=== PATIENT | male | born 1930 | race Caucasian/White ===

== ENCOUNTER 2018-05-02 21:51 | Observation (INO) ==
[2018-05-02] MEDS ORDERED: 0.9 % Sodium Chloride 1,000 ML IVC ONE (22:28)
--- NOTE | 2018-05-02 22:29 | Emergency Department Note ---
Disposition Clinical Impression: Dehydration, Acute cholecystitis, Cholelithiasis and acute cholecystitis without obstruction Disposition: Admitted As Inpatient Condition: Good Instructions: Dehydration (ED), Biliary Colic (ED) Referrals: NONE,PCP [Primary Care Provider] - Forms: ED Satisfaction Letter, Work/School Release Time of Disposition: 00:19 (Dr Tapia [id number] the pt at 12:19 am) Abdominal Pain HPI - General Chief Complaint: ED Abdominal Pain Stated Complaint: WEAKNESS, ABD PAIN Time Seen by Provider: 05/02/18 22:06 Source: patient - History of Present Illness HPI Narrative: Patient is a pleasant 88-year-old male with no significant PMH who is presenting to [facility] Emergency Room with a chief complaint off abdominal discomfort, dehydration and weakness. His sons brought him to the urgent care earlier where he was diagnosed with ileus. His condition got worse so they brought him to the emergency room for evaluation. He denies any true pain however he feels weak and frail and noticed to be dehydrated. Patient denies any fever, chills or night sweats. Pt also denies any eye pain or visual disturbances. There is no sore throat, nasal drainages or facial congestion. There is no chest pain, palpitations or racing heart. Pt also denies any shortness of breath, cough or chest congestion. There is no abdominal pain, nausea, vomiting or diarrhea. There is no urgency, frequency or dysuria. There is no muskulo-skeletal pain, arthralgia or back pain. Patient also denies any rash, edema or pruritus. There is no neurological manifestations, no headache, no vertigo or weakness. The patient also denies any anxiety, depression, hallucinations and has no homicidal or suicidal ideations. There is no polyuria, polydipsia or recent weight change. There is no easy bruising or bleeding. Review of other systems is otherwise negative except above. Consistency: intermittent Pain Severity: none Pain Scale: 5 - Related Data Previous Rx's Medication Instructions Recorded Dicyclomine [Bentyl] 10 mg PO QID #20 capsule 05/02/18 Simethicone [Gas Relief] 125 mg PO TID #15 tab.chew 05/02/18 Allergies Allergy/AdvReac Type Severity Reaction Status Date / Time Hydromorphone [From Dilaudid] AdvReac Hallucinati Verified 05/02/18 21:53 ng All systems ED: reviewed and negative except as stated. Review of Systems: As Per HPI Constitutional: Reports: weakness. Denies: fever, chills Eyes: Denies: eye pain, eye discharge ENT ED: Denies: ear pain, throat pain Cardiovascular: Denies: chest pain, palpitations Respiratory: Denies: cough, dyspnea, wheezes Gastrointestinal: Reports: nausea. Denies: abdominal pain, vomiting, diarrhea Genitourinary: Denies: urgency, dysuria, frequency Musculoskeletal: Denies: back pain, neck pain, joint swelling Integumentary: Denies: abrasion, lesions Neurological: Reports: weakness. Denies: headache, numbness Abdominal Pain PMH - Past Medical History Medical history: Reports: no medical history, other Male Surgical History: Reports: no surgical history, angioplasty/stent Psychiatric history: Reports: no psych history - Social History Smoking status: Never smoker Alcohol use: Reports: none Drug use: Reports: none Physical Exam - General Limitations: physical limitation, age General appearance: alert, in no apparent distress, lethargic - Head Head exam: atraumatic, normocephalic, normal inspection - Eye Eye exam: Present: normal appearance, PERRL, EOMI - Expanded Eye Exam Pupils: Left: reactive - ENT ENT exam: normal exam, normal oropharynx, mucous membranes dry - Expanded ENT Exam External ear exam: Present: normal external inspection Mouth exam: Present: normal external inspection Teeth exam: Present: normal inspection Throat exam: Present: normal inspection - Neck Neck exam: Present: normal inspection, full ROM, trachea midline - Chest Chest inspection: Present: normal inspection, symmetric chest wall rise - Respiratory Respiratory exam: Present: normal lung sounds bilaterally - Cardiovascular Cardiovascular exam: Present: regular rate, normal rhythm, normal heart sounds - Abdominal Exam Abdominal exam: Present: soft, Non-Tender. Absent: tenderness, distention, guarding, rebound, rigidity - Extremities Exam Extremities exam: Present: normal inspection, full ROM. Absent: tenderness, pedal edema - Expanded Upper Extremity Exam Shoulder exam: Present: normal inspection, full ROM Arm exam: Present: normal inspection, full ROM Elbow exam: Present: normal inspection, full ROM Forearm/Wrist exam: Present: normal inspection, full ROM Hand exam: Present: normal inspection, full ROM Vascular exam: Normal: capillary refill, radial pulse - Expanded Lower Extremity Exam Hip/Pelvis exam: Present: normal inspection, full ROM Upper leg exam: Present: normal inspection, full ROM Knee exam: Present: normal inspection, full ROM Lower leg exam: Present: normal inspection, full ROM Ankle exam: Present: normal inspection, full ROM Foot/toe exam: Present: normal inspection, full ROM Neurovascular/Tendon exam: Absent: motor deficit, sensory deficit, tendon deficit - Back Exam Back exam: Present: normal inspection, full ROM. Absent: tenderness - Neurological Exam Neurological exam: Present: alert, oriented X3 - Expanded Neurological Exam Patient oriented to: Present: person, place, time Coma Scale Eye Opening: Spontaneous Coma Scale Motor Response: Obeys Commands Coma Scale Verbal Response: Oriented Coma Scale Total: 15 - Psychiatric Psychiatric exam: Present: normal affect, normal mood - Skin Skin exam: Present: warm, dry, intact, normal color Course Vital Signs Temperature 98.3 F 05/02/18 21:55 Pulse Rate 63 05/02/18 21:55 Respiratory Rate 18 05/02/18 21:55 Blood Pressure 135/61 05/02/18 21:55 O2 Sat by Pulse Oximetry 90 05/02/18 21:55 Temperature 98.3 F 05/02/18 21:55 Pulse Rate 67 05/02/18 22:34 Respiratory Rate 16 05/02/18 22:34 Blood Pressure 130/66 05/02/18 22:34 O2 Sat by Pulse Oximetry 97 05/02/18 22:34 Oxygen Delivery Oxygen Delivery Room Air Abdominal Pain - MDM Narrative Medical decision making narrative: Once Ct scan posted, called Dr Tapia and he accepted the pt at 12:19 am - Differential Diagnosis Differential Diagnosis: Likely: acute appendicitis, calculus of kidney, constipation, diverticulitis - Medical Records Medical records reviewed: Yes I reviewed the patient's medical records. - Lab Data Lab results reviewed: Yes I reviewed the patient's lab results. Result diagrams: 05/02/18 22:20 05/02/18 22:20 Lab Results 05/02/18 05/02/18 05/02/18 Range/Units 22:20 22:20 22:20 WBC 14.5 H (4.3-11.1) K/mcL RBC 4.31 (4.19-5.50) M/mcL Hgb 13.2 (12.9-16.9) g/dL Hct 38.1 (37.5-50.1) % MCV 88.4 (83.0-100.0) fL MCH 30.6 (28.0-33.3) pg MCHC 34.6 (31.6-35.5) g/dL RDW 12.9 (11.5-14.5) % Plt Count 149 (140-400) K/mcL MPV 11.1 (9.4-12.4) fL Immature Gran % 0.3 (0-4) % Seg Neutrophils % 85.3 % Lymphocytes % 3.4 % Monocytes % 10.9 % Eosinophils % 0.0 % Basophils % 0.1 % Neutrophils # 12.4 H (1.6-8.9) K/mcL Lymphocytes # 0.5 L (0.6-4.6) K/mcL Monocytes # 1.6 H (0.0-1.3) K/mcL Eosinophils # 0.0 (0.0-0.6) K/mcL Basophils # 0.0 (0.0-0.2) K/mcL PT 11.7 (9.4-12.1) Seconds INR 1.0 APTT 27.6 (26.0-36.0) Seconds Sodium 132 L (136-145) mEq/L Potassium 3.7 (3.5-5.1) mEq/L Chloride 97 L (98-107) mEq/L Carbon Dioxide 25 (23-29) mEq/L BUN 19 (8-23) mg/dL Creatinine 1.19 (0.70-1.30) mg/dL Est GFR ( Amer) > 60 (> 60) Est GFR (Non-Af Amer) 58 L (> 60) BUN/Creatinine Ratio 16 (6-26) Glucose 164 H (70-105) mg/dL Calculated Osmolality 280 (280-300) Calcium 9.3 (8.6-10.3) mg/dL Total Bilirubin 1.9 H (0.3-1.0) mg/dL Direct Bilirubin 0.8 H (0.0-0.2) mg/dL Indirect Bilirubin 1.1 (0.0-1.2) mg/dL AST 344 H (13-39) Units/L ALT 297 H (7-52) Units/L Alkaline Phosphatase 183 H (34-104) Units/L Troponin I < 0.03 (< 0.04) ng/mL Serum Total Protein 6.7 (6.4-8.9) g/dL Albumin 3.7 (3.5-5.7) g/dL Globulin 3.0 (2.4-3.5) g/dL Albumin/Globulin Ratio 1.2 (1.1-2.2) Amylase 40 (29-103) Units/L Lipase 4 L (11-82) Units/L Urine Color (Yellow) Urine Clarity (Clear) Urine pH (5.0-8.0) pH Units Ur Specific [place] (1.010-1.025) Urine Protein (Neg-Trace) mg/dL Urine Glucose (UA) (Normal) mg/dL Urine Ketones (Negative) mg/dL Urine Blood (Negative) Urine Nitrite (Negative) Urine Bilirubin (Negative) Urine Urobilinogen (Normal) mg/dL Ur Leukocyte Esterase (Negative) Urine Microscopic RBC (0-3) per hpf Urine Microscopic WBC (0-3) per hpf Ur Squamous Epith Cells (None-Few) per lpf Ur Transition Epith Cell (None-Few) per hpf Urine Bacteria (None-Few) per hpf Hyaline Casts (None-Few) per lpf Urine Mucus (Few) Ur Culture Indicated? (NO) 05/02/18 Range/Units 23:45 WBC (4.3-11.1) K/mcL RBC (4.19-5.50) M/mcL Hgb (12.9-16.9) g/dL Hct (37.5-50.1) % MCV (83.0-100.0) fL MCH (28.0-33.3) pg MCHC (31.6-35.5) g/dL RDW (11.5-14.5) % Plt Count (140-400) K/mcL MPV (9.4-12.4) fL Immature Gran % (0-4) % Seg Neutrophils % % Lymphocytes % % Monocytes % % Eosinophils % % Basophils % % Neutrophils # (1.6-8.9) K/mcL Lymphocytes # (0.6-4.6) K/mcL Monocytes # (0.0-1.3) K/mcL Eosinophils # (0.0-0.6) K/mcL Basophils # (0.0-0.2) K/mcL PT (9.4-12.1) Seconds INR APTT (26.0-36.0) Seconds Sodium (136-145) mEq/L Potassium (3.5-5.1) mEq/L Chloride (98-107) mEq/L Carbon Dioxide (23-29) mEq/L BUN (8-23) mg/dL Creatinine (0.70-1.30) mg/dL Est GFR ( Amer) (> 60) Est GFR (Non-Af Amer) (> 60) BUN/Creatinine Ratio (6-26) Glucose (70-105) mg/dL Calculated Osmolality (280-300) Calcium (8.6-10.3) mg/dL Total Bilirubin (0.3-1.0) mg/dL Direct Bilirubin (0.0-0.2) mg/dL Indirect Bilirubin (0.0-1.2) mg/dL AST (13-39) Units/L ALT (7-52) Units/L Alkaline Phosphatase (34-104) Units/L Troponin I (< 0.04) ng/mL Serum Total Protein (6.4-8.9) g/dL Albumin (3.5-5.7) g/dL Globulin (2.4-3.5) g/dL Albumin/Globulin Ratio (1.1-2.2) Amylase (29-103) Units/L Lipase (11-82) Units/L Urine Color Yellow (Yellow) Urine Clarity Slightly Cloudy A (Clear) Urine pH 6.5 (5.0-8.0) pH Units Ur Specific [place] 1.015 (1.010-1.025) Urine Protein Negative (Neg-Trace) mg/dL Urine Glucose (UA) Normal (Normal) mg/dL Urine Ketones Negative (Negative) mg/dL Urine Blood Moderate H (Negative) Urine Nitrite Negative (Negative) Urine Bilirubin Negative (Negative) Urine Urobilinogen Normal (Normal) mg/dL Ur Leukocyte Esterase Trace H (Negative) Urine Microscopic RBC 3-5 H (0-3) per hpf Urine Microscopic WBC 3-5 H (0-3) per hpf Ur Squamous Epith Cells Few (None-Few) per lpf Ur Transition Epith Cell Few (None-Few) per hpf Urine Bacteria Moderate H (None-Few) per hpf Hyaline Casts Few (None-Few) per lpf Urine Mucus Moderate H (Few) Ur Culture Indicated? YES A (NO) - Radiology Data Radiology results reviewed: Yes I reviewed the patient's radiology results. - EKG Data EKG attestation: Yes I reviewed and interpreted this EKG.
[2018-05-02 22:31] LABS: Basophils % 0.1 %; Hematocrit 38.1 % (37.5-50.1); Hemoglobin 13.2 g/dL (12.9-16.9); Immature Granulocytes % 0.3 % (0-4); Lymphocytes # 0.5 K/mcL (0.6-4.6); Lymphocytes % 3.4 %; Mean Corpuscular HGB Conc 34.6 g/dL (31.6-35.5); Mean Corpuscular Hemoglobin 30.6 pg (28.0-33.3); Mean Corpuscular Volume 88.4 fL (83.0-100.0); Mean Platelet Volume 11.1 fL (9.4-12.4); Monocytes # 1.6 K/mcL (0.0-1.3); Monocytes % 10.9 %; Platelet Count 149 K/mcL (140-400); Red Blood Count 4.31 M/mcL (4.19-5.50); Red Cell Distribution Width 12.9 % (11.5-14.5); Segmented Neutrophils % 85.3 %
[2018-05-02 22:32] LABS: Neutrophils # 12.4 K/mcL (1.6-8.9)
[2018-05-02 22:39] LABS: Prothrombin Time 11.7 Seconds (9.4-12.1)
[2018-05-02 22:42] LABS: Activated Partial Thrombo Time 27.6 Seconds (26.0-36.0)
[2018-05-02 22:50] LABS: Troponin I < 0.03 ng/mL (< 0.04)
[2018-05-02 22:51] LABS: Alanine Aminotransferase 297 Units/L (7-52); Albumin 3.7 g/dL (3.5-5.7); Albumin/Globulin Ratio 1.2 (1.1-2.2); Alkaline Phosphatase 183 Units/L (34-104); Amylase 40 Units/L (29-103); Aspartate Amino Transferase 344 Units/L (13-39); BUN/Creatinine Ratio 16 (6-26); Bilirubin,Direct 0.8 mg/dL (0.0-0.2); Bilirubin,Indirect 1.1 mg/dL (0.0-1.2); Bilirubin,Total 1.9 mg/dL (0.3-1.0); Blood Urea Nitrogen 19 mg/dL (8-23); Calcium 9.3 mg/dL (8.6-10.3); Carbon Dioxide 25 mEq/L (23-29); Chloride 97 mEq/L (98-107); Glucose 164 mg/dL (70-105); Lipase 4 Units/L (11-82); Osmolality,Calculated 280 (280-300); Potassium 3.7 mEq/L (3.5-5.1); Sodium 132 mEq/L (136-145); Total Protein 6.7 g/dL (6.4-8.9); eGFR For Non-African Americans 58 (> 60)
[2018-05-02] MEDS ORDERED: Isovue-370 500 ML INFUS..BTL IV ONE (22:59)
[2018-05-02 23:48] LABS: Bilirubin,Urine Negative (Negative); Blood,Urine Moderate (Negative); Clarity,Urine Slightly Cloudy (Clear); Color,Urine Yellow (Yellow); Glucose,Urine (UA) Normal (Normal); Ketones,Urine Negative (Negative); Leukocyte Esterase,Urine Trace (Negative); Nitrite,Urine Negative (Negative); PH,Urine 6.5 pH Units (5.0-8.0); Protein,Urine Negative (Neg-Trace); Specific Gravity,Urine 1.015 (1.010-1.025); Urobilinogen,Urine Normal (Normal)
[2018-05-03] LABS: Hyaline Casts,Urine Few per lpf (None-Few); Mucus,Urine Moderate (Few); Squamous Epithelial Cell,Urine Few per lpf (None-Few); Transitional Epi Cells,Urine Few per hpf (None-Few)
[2018-05-03 00:03] LABS: Bacteria,Urine Moderate per hpf (None-Few)
[2018-05-03] MEDS ORDERED: cefTRIAXone 2,000 MG in Water for inj. (sterile) 20 ML 20 ML IVP ONE (00:04)
[2018-05-03] MEDS ORDERED: MetroNIDAZOLE 500 MG/100 ML 500 MG/100 ML BAG IVPB ONE (00:19)
[2018-05-03] MEDS ORDERED: Naloxone 0.4 MG/ML INJ IVP PRN (00:34)
[2018-05-03] MEDS ORDERED: Isovue-370 500 ML INFUS..BTL IV ONE (01:22)
[2018-05-03 06:28] VITALS: BP 143/72
[2018-05-03] MEDS: 0.9 % Sodium Chloride 1,000 ML IVC SCH ×2 (08:27→13:02)
--- NOTE | 2018-05-03 12:13 | Internal Med History&Physical ---
Date of Encounter: 05/03/18 Time of Encounter: 11:20 Assessment and Plan (1) Acute cholecystitis Current visit: Yes Status: Acute He has been started on IV Rocephin and Flagyl. I spoke with his son Castillo and recommended patient be transferred for surgical evaluation. The son requested [facility] in [place]. (2) CKD (chronic kidney disease) stage 3, GFR 30-59 ml/min Current visit: Yes Status: Chronic Creatinine stable since December 2014. (3) BPH (benign prostatic hyperplasia) Current visit: Yes Status: Chronic He reports taking medication for this but does not know the name. Qualifiers: Lower urinary tract symptom presence: unspecified whether lower urinary tract symptoms present Qualified Code(s): N40.0 - Benign prostatic hyperplasia without lower urinary tract symptoms Internal Medicine - H&P: HPI Chief complaint: Abdominal discomfort Admitted From: Emergency Dept Plans for Post Hospital Care: Home History of present illness: Mr. Coley is a 88 year old male who came to emergency room complaining of abdominal discomfort over the past 2 days. He had been to a local urgent care the previous day and was diagnosed with ileus. He was prescribed Bentyl. When he did not improve he came to emergency room and was evaluated and found to have evidence of acute cholecystitis. He was given IV antibiotics and admitted to [facility] floor. He denies vomiting or diarrhea. He states his abdominal pain has lessened but is still present. He states he was told he had a "bad gallbladder" a few months ago but did not see a surgeon. He denies disorders of his liver or exocrine pancreas. Past Med Surg Social Fam HX - Past Medical History Medical history: no medical history, other Additional medical history: POSSIBLE PROSTATE PROBLEMS Psychiatric history: no psych history - Social History Smoking Status: Never smoker Smokeless Tobacco Status: No Alcohol use: none Drug use: none Internal Medicine - H&P: Meds Dicyclomine [Bentyl] 10 mg PO QID #20 capsule 05/02/18 [Rx] Simethicone [Gas Relief] 125 mg PO TID #15 tab.chew 05/02/18 [Rx] 3 Allergy/AdvReac Type Severity Reaction Status Date / Time Hydromorphone [From Dilaudid] AdvReac Hallucinati Verified 05/02/18 21:53 ng All Systems PM: A 10-system review of systems was performed and is negative for pertinent findings except as documented above in the HPI. Review of systems: Gen.: He states his weight has decreased approximately 15 pounds in the past year unintentionally Cardiovascular: He denies hypertension LA heart failure DVT or pulmonary embolus. He states he has ASHD with stents placed approximately 2014 at [facility]. He does not know details. Respiratory: He is a lifelong nonsmoker and has no known chronic lung disease GI: As per history of present illness : He was unaware he had chronic kidney disease. Estimated GFR in December 2014 and in emergency room last evening was 58. He denies other kidney or bladder disease. He has BPH. Neurologic: He denies large distribution strokes or seizures. Endocrine: He denies diabetes thyroid disease or hyperlipidemia Hematology/oncology: He denies blood disorders cancers or anemia Psychiatric: He denies anxiety depression or other mental health issues [place] skeletal: He denies arthritis gout or other bone joint or muscle disorders - Constitutional Vitals: Temp Pulse Resp BP Pulse Ox 98 F 62 16 143/72 96 05/03/18 06:23 05/03/18 06:23 05/03/18 06:23 05/03/18 06:23 05/03/18 06:23 Exam: Gen.: He is a well-developed well-nourished male resting comfortably in bed who appears in no acute distress. He complains of mild discomfort in his right abdominal area HEENT: Head is atraumatic and normocephalic. Eyes: EOMI. There is no scleral icterus. Mouth: Mucosa is moist. Neck: Supple and nontender. There is no thyromegaly or adenopathy noted. Heart: Regular without murmurs gallops or ectopics Lungs: No wheezes or crackles are heard. Abdomen: Bowel sounds are present. There is mild tenderness to right upper quadrant palpation. No masses or guarding are noted. Extremities: There is no cyanosis edema or clubbing noted. Dorsalis pedis and posterior tibial pulses are trace to 1+ palpable bilaterally. Neurologic: Mental status: He is talkative and a fair to good historian. He does not remember some details of his history clearly. Cranial nerves: Smile is symmetric. Forehead wrinkles bilaterally. Tongue protrudes midline. EOMI. Motor: There is no pronator drift. Cerebellar: Finger to nose is intact bilaterally. Skin: Warm and dry Internal Med - H&P Results - Labs CBC & Chem 7: 05/02/18 22:20 05/02/18 22:20
[2018-05-03] MEDS ORDERED: 0.9 % Sodium Chloride w KCl 20 MEQ/1,000 ML MLS IVC SCH (12:15)
[2018-05-03] MEDS ORDERED: MetroNIDAZOLE 500 MG/100 ML 500 MG/100 ML BAG IVPB SCH (13:00)
--- NOTE | 2018-05-03 14:03 | Discharge Summary ---
Date of Encounter: 05/03/18 Time of Encounter: 11:20 - Discharge Diagnosis (1) Acute cholecystitis Priority: Primary Status: Acute (2) CKD (chronic kidney disease) stage 3, GFR 30-59 ml/min Priority: Secondary Status: Chronic (3) BPH (benign prostatic hyperplasia) Priority: Secondary Status: Chronic Qualifiers: Lower urinary tract symptom presence: unspecified whether lower urinary tract symptoms present Qualified Code(s): N40.0 - Benign prostatic hyperplasia without lower urinary tract symptoms Hospital course: Mr. Coley is a 88 year old male who came to emergency room complaining of abdominal discomfort over the past 2 days. He had been to a local urgent care the previous day and was diagnosed with ileus. He was prescribed Bentyl. When he did not improve he came to emergency room and was evaluated and found to have evidence of acute cholecystitis. He was given IV antibiotics and admitted to [facility] floor. Initial orders were written by the emergency room physician. I saw him morning of May 03 and performed a history and physical. He was given IV Rocephin and Flagyl. I spoke with his son Castillo and recommended he be transferred for surgical evaluation. [facility] was contacted and accepted him in transfer. - Time Spent with Patient Total time spent providing and/or coordinating discharge services: - Discharge Medications Home Medications: Dicyclomine [Bentyl] 10 mg PO QID #20 capsule 05/02/18 [Rx] Simethicone [Gas Relief] 125 mg PO TID #15 tab.chew 05/02/18 [Rx] Allergies/Adverse Reactions: 3 Allergy/AdvReac Type Severity Reaction Status Date / Time Hydromorphone [From Dilaudid] AdvReac Hallucinati Verified 05/02/18 21:53 ng Date of admission: 05/03/18 00:37 Primary care physician: PCP NONE - Constitutional Vitals: Temp Pulse Resp BP Pulse Ox 98 F 62 16 143/72 96 05/03/18 06:23 05/03/18 06:23 05/03/18 06:23 05/03/18 06:23 05/03/18 06:23 - Patient Status Disposition: Transfer Other Condition: Good - Discharge Instructions Follow Up With: NONE,PCP [Primary Care Provider] - 1 week
[2018-05-03] MEDS ORDERED: Ketorolac 30 MG/ML VIAL IVP ONE (14:04)
--- NOTE | 2018-05-05 11:08 | Electrocardiograph Report ---
[address] [address] Test Date: 2018-05-02 Pat Name: Devendra Coley Department: [id number] Room: [facility] Gender: M Enterprise Engineer: [id number] : 1930 Requested By: Dionicio Abdul Order Number: [id number] Reading MD: Conner Hardwick Measurements Intervals [place] Rate: 61 P: 65 OK: 185 QRS: -42 QRSD: 102 T: 26 QT: 412 QTc: 414 Interpretive Statements SINUS RHYTHM MARKED LEFT AXIS DEVIATION NONSPECIFIC T-WAVE ABNORMALITY Electronically Signed On 05-05-2018 11:06:56 EDT by Conner Hardwick
== END 2018-05-03 14:40 | disposition other institution (70) ==
LOC: EMEROOPIK 21:51 → INPPIK 21:51
PROVIDERS: ADMIT Internal Medicine; ATTEND Internal Medicine